=== PATIENT | female | born 1980 | race Caucasian/White ===

== ENCOUNTER 2018-12-25 18:14 | Emergency (ER) | payer BC ==
[2018-12-25] MEDS ORDERED: Sodium Chloride 0.9% 10 ML Syringe FLUSH PRN (18:30)
[2018-12-25] MEDS ORDERED: Iopamidol 612 MG/ML 100 ML Bottle IVPUSH ONE (19:00)
[2018-12-25 19:03] LABS: CHLORIDE,CL 101 mmol/L (98-107); SODIUM,NA 137 mmol/L (136-145)
[2018-12-25 19:05] LABS: ANION GAP 18.4 mmol/L (10-20)
--- NOTE | 2018-12-25 20:18 | CT ---
[id number] CT/CTA Chest Exam: CTA Chest Clinical Data: LEFT-SIDED CHEST WALL PAIN COMPARISON: CORRELATION IS MADE WITH THE EXAM OF JUNE 19, 2017 FINDINGS: There are no pulmonary emboli There is a minimal amount of pleural reaction at the left lung base There is no infiltrate There is inhomogeneous enhancement of the right lobe of the liver involving segments VII and VIII This is best seen on image 107, series 9 The segment VIII lesion is 8 mm in diameter The segment VII lesion is 4 cm in diameter. A third enhancing lesion is seen in the caudate lobe on image 120, series 9 These findings in the liver the evaluated at some later date Differential diagnosis of the findings in the liver include hypervascular metastases. Hemangiomas are also possibilities although the larger lesion does not demonstrate peripheral puddling At some point a triple phase contrast CT of the abdomen or MRI would be helpful The thoracic aorta is intact There is no mediastinal mass or adenopathy IMPRESSION: NO PULMONARY EMBOLI MILD PLEURAL REACTION AND MINIMAL ATELECTASIS LEFT LUNG BASE INDETERMINATE HEPATIC ENHANCING LESIONS. Zack Masterson MD 12/25/182016 Thank you for allowing us to participate in the care of your patient.
--- NOTE | 2018-12-25 20:36 | EDM.PDOC ---
ED HPI GENERAL MEDICAL PROBLEM - General Chief Complaint: Respiratory Problem Stated Complaint: SOB Time Seen by Provider: 12/25/18 18:30 Source of Information: Reports: Patient History Limitations: Reports: No Limitations - History of Present Illness INITIAL COMMENTS - FREE TEXT/NARRATIVE: Pt seen at clinic today for right chest wall pain is currently being treated for pneumonia, did have elevated d dimer sent to er by clinic for chest cta. Onset: Today Location: Reports: Chest Quality: Reports: Ache left lung/chest Pain Score (Numeric/FACES): 5 - Related Data Allergies Allergy/AdvReac Type Severity Reaction Status Date / Time acetaminophen [From Midol] Allergy Hives Verified 12/16/16 16:10 cefaclor Allergy Cannot Verified 12/16/16 16:10 Remember pamabrom [From Midol] Allergy Hives Verified 12/16/16 16:10 Home Meds: Home Meds Vits #93/Iron Fum/FA [ Formula Tablet] 1 each PO DAILY [History] Past Medical History Respiratory History: Reports: Other (See Below) Other Respiratory History: pneumonia after childbirth twice Genitourinary History: Reports: UTI, Recurrent [employer] History: Reports: - Past Surgical History Female Surgical History: Reports: Section Social & Family History - Tobacco Use Smoking Status *Q: Never Smoker - Alcohol Use Days Per Week of Alcohol Use: 7 Number of Drinks Per Day: 2 Total Drinks Per Week: 14 - Recreational Drug Use Recreational Drug Use: No ED ROS GENERAL - Review of Systems Review Of Systems: See Below Constitutional: Reports: No Symptoms HEENT: Reports: No Symptoms Respiratory: Reports: Shortness of Breath, Pleuritic Chest Pain Cardiovascular: Reports: No Symptoms Endocrine: Reports: No Symptoms GI/Abdominal: Reports: No Symptoms : Reports: No Symptoms Musculoskeletal: Reports: No Symptoms Skin: Reports: No Symptoms Neurological: Reports: No Symptoms Psychiatric: Reports: No Symptoms Hematologic/Lymphatic: Reports: No Symptoms Immunologic: Reports: No Symptoms ED EXAM, GENERAL - Physical Exam Exam: See Below Exam Limited By: No Limitations General Appearance: Alert, WD/WN, No Apparent Distress Ears: Normal External Exam Nose: Normal Inspection, Normal Mucosa, No Blood Throat/Mouth: Normal Inspection Head: Atraumatic, Normocephalic Neck: Normal Inspection Respiratory/Chest: Lungs Clear, Normal Breath Sounds, No Accessory Muscle Use Cardiovascular: Normal Peripheral Pulses, Regular Rate, Rhythm Neurological: Alert, Oriented Psychiatric: Normal Affect, Normal Mood Skin Exam: Warm, Dry, Intact Lymphatic: No Adenopathy Course - Vital Signs Last Recorded V/S: Last Vital Signs Temp 37.3 C 12/25/18 19:28 Pulse 121 H 12/25/18 19:28 Resp 18 12/25/18 19:28 BP 149/92 H 12/25/18 19:28 Pulse Ox 99 12/25/18 19:28 - Orders/Labs/Meds Orders: Active Orders 24 hr Category Date Time Status EKG 12 Lead [EKG Documentation Completion] [RC] STAT Care 12/25/18 18:31 Active Sodium Chloride 0.9% [Saline Flush] Med 12/25/18 18:30 Active 10 ml FLUSH ASDIRECTED PRN Peripheral IV Insertion Adult [OM.PC] Routine Oth 12/25/18 18:30 Ordered Medication Orders Sodium Chloride (Saline Flush) 10 ml FLUSH ASDIRECTED PRN PRN Reason: Keep Vein Open Labs: Laboratory Tests 12/25/18 12/25/18 12/25/18 Range/Units 18:38 18:38 18:41 WBC 12.1 H (4.0-10.0) x10^3/uL RBC 5.22 (4.00-5.50) x10^6/uL Hgb 15.4 (12.0-16.0) g/dL Hct 46.1 (33.0-47.0) % MCV 88.3 (78.0-93.0) fL MCH 29.5 (26.0-32.0) pg MCHC 33.4 (32.0-36.0) g/dL RDW Coeff of Corina 13.2 (10.0-15.0) % Plt Count 312 (130-400) x10^3/uL Neut % (Auto) 89.2 H (50.0-80.0) % Lymph % (Auto) 9.1 L (25.0-50.0) % Major % (Auto) 1.6 L (2.0-11.0) % Eos % (Auto) 0.0 (0.0-4.0) % Baso % (Auto) 0.1 L (0.2-1.2) % Sodium (136-145) mmol/L Potassium (3.5-5.1) mmol/L Chloride (98-107) mmol/L Carbon Dioxide (21-32) mmol/L Anion Gap (10-20) mmol/L BUN (7-18) mg/dL Creatinine (0.55-1.02) mg/dL Est Cr Clr Drug Dosing Estimated GFR (MDRD) Glucose (74-106) mg/dL Calcium (8.5-10.1) mg/dL Urine Color Yellow (YELLOW) Urine Appearance Clear (CLEAR) Urine pH 7.0 (5.0-8.0) Ur Specific [place] 1.010 Urine Protein Negative (NEGATIVE) mg/dL Urine Glucose (UA) Negative (NEGATIVE) mg/dL Urine Ketones Negative (NEGATIVE) mg/dL Urine Occult Blood Negative (NEGATIVE) Urine Nitrite Negative (NEGATIVE) Urine Bilirubin Negative (NEGATIVE) Urine Urobilinogen 0.2 (0.2) EU/dL Ur Leukocyte Esterase Negative (NEGATIVE) Urine HCG, Qual Negative (NEGATIVE) 12/25/18 Range/Units 18:41 WBC (4.0-10.0) x10^3/uL RBC (4.00-5.50) x10^6/uL Hgb (12.0-16.0) g/dL Hct (33.0-47.0) % MCV (78.0-93.0) fL MCH (26.0-32.0) pg MCHC (32.0-36.0) g/dL RDW Coeff of Corina (10.0-15.0) % Plt Count (130-400) x10^3/uL Neut % (Auto) (50.0-80.0) % Lymph % (Auto) (25.0-50.0) % Major % (Auto) (2.0-11.0) % Eos % (Auto) (0.0-4.0) % Baso % (Auto) (0.2-1.2) % Sodium 137 (136-145) mmol/L Potassium 4.4 (3.5-5.1) mmol/L Chloride 101 (98-107) mmol/L Carbon Dioxide 22 (21-32) mmol/L Anion Gap 18.4 (10-20) mmol/L BUN 6 L (7-18) mg/dL Creatinine 0.8 (0.55-1.02) mg/dL Est Cr Clr Drug Dosing TNP Estimated GFR (MDRD) > 60 Glucose 142 H (74-106) mg/dL Calcium 9.1 (8.5-10.1) mg/dL Urine Color (YELLOW) Urine Appearance (CLEAR) Urine pH (5.0-8.0) Ur Specific [place] Urine Protein (NEGATIVE) mg/dL Urine Glucose (UA) (NEGATIVE) mg/dL Urine Ketones (NEGATIVE) mg/dL Urine Occult Blood (NEGATIVE) Urine Nitrite (NEGATIVE) Urine Bilirubin (NEGATIVE) Urine Urobilinogen (0.2) EU/dL Ur Leukocyte Esterase (NEGATIVE) Urine HCG, Qual (NEGATIVE) Meds: Medications Generic Name Dose Route Start Last Admin Trade Name Freq PRN Reason Stop Dose Admin Sodium Chloride 10 ml 12/25/18 18:30 Saline Flush FLUSH ASDIRECTED PRN Keep Vein Open Discontinued Medications Generic Name Dose Route Start Last Admin Trade Name Freq PRN Reason Stop Dose Admin Iopamidol 100 ml 12/25/18 19:00 12/25/18 19:29 Isovue-300 (61%) IVPUSH 12/25/18 19:01 100 ml ONETIME ONE Administration Departure - Departure Time of Disposition: 20:36 Disposition: Home, Self-Care 01 Condition: Good Clinical Impression: Pneumonia, Liver lesion - Discharge Information Referrals: Kanika Freedman, [employer] [Primary Care Provider] - Care Plan Goals: Noted liver lesion on CTA. Pt to follow up [facility] pcp for further evaluation and treatment of liver lesion. Pt stable at this time. Continue current treatment plan / abx started at the clinic for shortness of breath. - My Orders Last 24 Hours: My Active Orders 12/25/18 18:30 Sodium Chloride 0.9% [Saline Flush] 10 ml FLUSH ASDIRECTED PRN Peripheral IV Insertion Adult [OM.PC] Routine 12/25/18 18:31 EKG 12 Lead [EKG Documentation Completion] [RC] STAT - Assessment/Plan Last 24 Hours: My Active Orders 12/25/18 18:30 Sodium Chloride 0.9% [Saline Flush] 10 ml FLUSH ASDIRECTED PRN Peripheral IV Insertion Adult [OM.PC] Routine 12/25/18 18:31 EKG 12 Lead [EKG Documentation Completion] [RC] STAT
== END 2018-12-25 20:39 | disposition home or self-care (01) ==
LOC: VM.ED 18:14
DX: J18.9 Pneumonia, unspecified organism (principal); K76.9 Liver disease, unspecified; Z88.6 Allergy status to analgesic agent; Z88.8 Allergy status to other drugs, medicaments and biological substances
CPT/HCPCS: 36415; 71275; 80048; 81003; 81025; 85025; 93005; 99285; Q9967